=== PATIENT | female | born 1995 | race Caucasian/White ===

== ENCOUNTER 2021-02-28 02:48 | Emergency (ER) | payer BC, MEDICAID | END 2021-02-28 03:57 | disposition left against medical advice (07) | LOC: ER 02:48 | DX: E86.0 Dehydration (principal); R11.2 Nausea with vomiting, unspecified; R19.7 Diarrhea, unspecified; Z53.21 Procedure and treatment not carried out due to patient leaving prior to being seen by health care provider ==